=== PATIENT | male | born 1945 ===

== ENCOUNTER 2018-07-19 11:31 | Emergency (ER) | payer MEDICARE, OTHER ==
[2018-07-19 12:07] VITALS: TEMP 97.9
[2018-07-19 12:12] LABS: BASO # 0.06 K/mm3 (0.0-2.0); BASO % 0.8 % (0.0-3.0); EOS % 12.8 % (1.5-5.0); GRAN # 4.95 (1.4-6.5); GRAN % 62.4 % (50.0-68.0); HEMOGLOBIN 9.8 g/dL (14.0-18.0); LYMPH # 1.4 (1.2-3.4); LYMPH % 17.6 % (22.0-35.0); MEAN CELL VOLUME 95.5 fl (80.0-105.0); MEAN CORPUSCULAR HEMOGLOBIN 31.6 pg (25.0-35.0); MEAN CORPUSCULAR HGB CONC 33.1 g/dl (31.0-37.0); MEAN PLATELET VOLUME 9.8 fl (7.0-11.0); MONO # 0.5 (0.1-0.6); MONO % 6.4 % (1.0-6.0); RBC 3.1 10^6/uL (3.5-6.1); RED CELL DISTRIBUTION WIDTH 15.3 % (11.5-14.5); WHITE BLOOD COUNT 7.9 10^3/uL (4.5-11.0)
[2018-07-19 12:15] LABS: ALB/GLOB RATIO 0.6 (1.1-1.8); ALBUMIN 2.8 g/dL (3.0-4.8); ALT/SGPT 73 U/L (7-56); AST/SGOT 79 U/L (17-59); BLOOD UREA NITROGEN 18 mg/dL (7-21); CALCIUM 8.4 mg/dL (8.4-10.5); GFR NON-AFRICAN AMERICAN 43
--- NOTE | 2018-07-19 12:22 | ED PDOC ---
Arrival/HPI - General Chief Complaint: High Blood Sugar Time Seen by Provider: 07/19/18 11:36 Historian: Patient, Spouse - History of Present Illness Narrative History of Present Illness (Text): 07/19/18 12:18 A 72 year old male, whose past medical history includes DM, presents to the emergency department with for a complaint of weakness and dizziness this morning. The patient notes that his blood sugar was 170 last night and states that it fluctuates. His notes that his blood sugar was 340 when EMS checked it prior to arrival to the emergency department. The patient states that he was prescribed 50 units of NovoLog twice a day prior to eating. The patient has also been taking 20 mg of Lasix once a day for the past 3-4 days. The patient's notes that he was seen last week and 2 days ago at different medical institutions for similar symptoms and discharged home because results were normal. The patient denies fevers, chills, numbness/ tingling, headache, cough, sore throat, chest pain, shortness of breath, dyspena on exertion, abdominal pain, nausea, vomiting, diarrhea, neck/ back pain, urinary/ bowel symptoms, trauma/ injury, or any other complaints. PMD: None Time/Duration: Other (This Morning) Symptom Onset: Sudden Symptom Course: Unchanged Activities at Onset: Rest, Light Context: Home Past Medical History - Provider Review Nursing Documentation Reviewed: Yes - Endocrine/Metabolic Hx Diabetes Mellitus Type 1: Yes - Genitourinary/Gynecological Other/Comment: stomach ulcer - Psychiatric Hx Substance Use: No - Surgical History Other/Comment: bypass robatic sx x 17 years - Anesthesia Hx Anesthesia: Yes Hx Anesthesia Reactions: No Hx Malignant Hyperthermia: No Family/Social History - Physician Review Nursing Documentation Reviewed: Yes Family/Social History: No Known Family HX Smoking Status: Never Smoked Hx Alcohol Use: No Hx Substance Use: No Allergies/Home Meds Allergies/Adverse Reactions: Allergies erythromycin base Allergy (Verified 07/19/18 11:38) ANAPHYLAXIS Home Medications: Home Meds Medication Instructions Recorded Confirmed Albuterol Sulfate 2 inh PO Q6 07/19/18 07/19/18 Cetirizine HCl 10 mg PO DAILY 07/19/18 07/19/18 Furosemide 40 mg PO DAILY 07/19/18 07/19/18 Losartan 25 mg PO DAILY 07/19/18 07/19/18 Magnesium Oxide 400 mg PO DAILY 07/19/18 07/19/18 Metoprolol Succinate 50 mg PO DAILY 07/19/18 07/19/18 Nexium 40 mg PO DAILY 07/19/18 07/19/18 Review of Systems - Physician Review All systems were reviewed & negative as marked: Yes - Review of Systems Constitutional: absent: Fevers ENT: absent: Sore Throat Respiratory: absent: SOB, Cough Cardiovascular: absent: Chest Pain, FRIEDMAN Gastrointestinal: absent: Abdominal Pain, Stool Changes, Diarrhea, Nausea, Vomiting Genitourinary Male: absent: Urinary Output Changes Musculoskeletal: absent: Back Pain, Neck Pain Neurological: Dizziness, Other (Weakness). absent: Headache Physical Exam Vital Signs Reviewed: Yes Vital Signs Temp Pulse Resp BP Pulse Ox 07/19/18 12:06 97.9 F 73 18 143/79 98 Temperature: Afebrile Blood Pressure: Normal Pulse: Regular Respiratory Rate: Normal Appearance: Positive for: Well-Appearing, Non-Toxic, Comfortable Pain Distress: None Mental Status: Positive for: Alert and Oriented X 3 - Systems Exam Head: Present: Atraumatic, Normocephalic Pupils: Present: PERRL Extroacular Muscles: Present: EOMI Conjunctiva: Present: Normal Mouth: Present: Moist Mucous Membranes Neck: Present: Normal Range of Motion Respiratory/Chest: Present: Clear to Auscultation, Good Air Exchange. No: Respiratory Distress, Accessory Muscle Use Cardiovascular: Present: Regular Rate and Rhythm, Normal S1, S2. No: Murmurs Abdomen: No: Tenderness, Distention, Peritoneal Signs Back: Present: Normal Inspection Upper Extremity: Present: Normal Inspection. No: Cyanosis, Edema Lower Extremity: Present: Edema (+1 Edema) Neurological: Present: GCS=15, CN II-XII Intact, Speech Normal Skin: Present: Warm, Dry, Normal Color. No: Rashes Psychiatric: Present: Alert, Oriented x 3, Normal Insight, Normal Concentration Medical Decision Making ED Course and Treatment: 07/19/18 12:24 Impression: A 72 year old male is brought into the emergency department for further evaluation of weakness and dizziness this morning. Plan: -- EKG -- CXR -- Urine Culture -- Urinalysis -- Labs -- Reassess and disposition Progress Notes: EKG: Ordered, reviewed, and independently interpreted the EKG. Rate : 76 BPM Rhythm : NSR Interpretation : Normal axis. Normal intervals. Chest X- Ray Dictator : Kendrick Cabrera MD Report Date : 07/19/2018 13:23:47 IMPRESSION: No active disease. PROCEDURE: CT Abdomen and Pelvis without intravenous contrast Dictator : Kendrick Cabrera MD Report Date : 07/19/2018 14:34:56 IMPRESSION: Cirrhosis. Moderate ascites and mesenteric edema. Gallstones. ABDOMEN ULTRASOUND Dictator : Robert Correia MD Report Date : 07/19/2018 16:41:30 IMPRESSION: Cholelithiasis. No sonographic evidence of acute cholecystitis. Splenomegaly. PROCEDURE: CT HEAD WITHOUT CONTRAST. Dictator : Kendrick Cabrera MD Report Date : 07/19/2018 14:09:48 IMPRESSION: No acute intracranial findings - Lab Interpretations Lab Results: 07/19/18 12:00 07/19/18 12:00 Lab Results 07/19/18 12:00: Sodium 136, Potassium 3.7, Chloride 101, Carbon Dioxide 30, Anion Gap 8 L, BUN 18, Creatinine 1.6 H, Est GFR ( Amer) 52, Est GFR (Non-Af Amer) 43, Random Glucose 298 H, Calcium 8.4, Magnesium 1.5 L, Total Bilirubin 3.6 H, AST 79 H, ALT 73 H, Alkaline Phosphatase 98, Lactate Dehydrogenase 1179 H, Total Creatine Kinase 320 H, CK-MB (CK-2) Pending, CK-MB (CK-2) % Pending, Troponin I Pending, Total Protein 7.7, Albumin 2.8 L, Globulin 4.9, Albumin/Globulin Ratio 0.6 L, B-Hydroxybutyrate Pending 07/19/18 12:00: WBC 7.9, RBC 3.10 L, Hgb 9.8 L, Hct 29.6 L, MCV 95.5, MCH 31.6, MCHC 33.1, RDW 15.3 H, Plt Count 50 L, MPV 9.8, Gran % 62.4, Lymph % (Auto) 17.6 L, Mineral % (Auto) 6.4 H, Eos % (Auto) 12.8 H, Baso % (Auto) 0.8, Gran # 4.95, Lymph # (Auto) 1.4, Mineral # (Auto) 0.5, Eos # (Auto) 1.0 H, Baso # (Auto) 0.06 07/19/18 11:36: POC Glucose (mg/dL) 260 H I have reviewed the lab results: Yes - RAD Interpretation Radiology Orders: 07/19/18 11:45 CHEST PORTABLE [RAD] Stat - EKG Interpretation Interpreted by ED Physician: Yes Type: 12 lead EKG - Scribe Statement The provider has reviewed the documentation as recorded by the Scribe Nathalia Rodriguez Provider Scribe Attestation: All medical record entries made by the Scribe were at my direction and personally dictated by me. I have reviewed the chart and agree that the record accurately reflects my personal performance of the history, physical exam, medical decision making, and the department course for this patient. I have also personally directed, reviewed, and agree with the discharge instructions and disposition. Disposition/Present on Arrival - Present on Arrival Any Indicators Present on Arrival: No History of DVT/PE: No History of Uncontrolled Diabetes: No Urinary Catheter: No History of Decub. Ulcer: No History Surgical Site Infection Following: None - Disposition Have Diagnosis and Disposition been Completed?: Yes Diagnosis: Hyperglycemia due to type 1 diabetes mellitus Disposition: HOME/ ROUTINE Disposition Time: 15:00 Condition: IMPROVED Discharge Instructions (ExitCare): Hyperglycemia, Adult (DC), Diabetic Meal Planning , Diabetes and Diet Additional Instructions: TRISTAN CORONADO, thank you for letting us take care of you today. The emergency medical care you received today was directed at your acute symptoms. If you were prescribed any medication, please fill it and take as directed. It may take several days for your symptoms to resolve. Return to the Emergency Department if your symptoms worsen, do not improve, or if you have any other problems. Please contact your doctor or call one of the physicians/clinics you have been referred to that are listed on the Patient Visit Information form that is included in your discharge packet. Bring any paperwork you were given at discharge with you along with any medications you are taking to your follow up visit. Our treatment cannot replace ongoing medical care by a primary care provider outside of the emergency department. Thank you for allowing the [facility] team to be part of your care today. Eat a balanced diet. NO CAKE! Follow up with your primary doctor and Dr. Mortensen next week for re-evaluation and further management. Prescriptions: Famotidine [Pepcid] 20 mg PO BID #20 tab Meclizine [Meclizine*] 25 mg PO Q6 PRN #20 tab PRN Reason: Dizziness Referrals: Fabiola Mortensen MD [Medical Doctor] - Follow up with primary Forms: [employer] (Latvian)
[2018-07-19 12:26] LABS: TROPONIN I < 0.01 ng/mL
[2018-07-19 12:35] LABS: CK-MB 2.4 ng/mL (0.0-3.6)
[2018-07-19 13:06] LABS: VENOUS BLOOD GAS BASE EXCESS 7.5 mmol/L (0.0-2.0); VENOUS BLOOD GAS PO2 176 mm/Hg (30-55); VENOUS BLOOD PH 7.51 (7.32-7.43)
--- NOTE | 2018-07-19 13:28 | RAD ---
Date of service: 07/19/2018 HISTORY: r/o infiltrate COMPARISON: No prior. FINDINGS: LUNGS: No active pulmonary disease. PLEURA: No significant pleural effusion identified, no pneumothorax apparent. CARDIOVASCULAR: No aortic atherosclerotic calcification present. Mild cardiomegaly no pulmonary vascular congestion. OSSEOUS STRUCTURES: No significant abnormalities. VISUALIZED UPPER ABDOMEN: Normal. OTHER FINDINGS: None. IMPRESSION: No active disease.
[2018-07-19 14:10] LABS: PH,URINE 6.5 (4.7-8.0); URINE BILIRUBIN NEGATIVE (NEGATIVE); URINE BLOOD NEGATIVE (NEGATIVE); URINE GLUCOSE (UA) 500 mg/dL (NEGATIVE); URINE LEUKOCYTE ESTERASE NEGATIVE Leu/uL (NEGATIVE); URINE PROTEIN NEGATIVE mg/dL (<30 mg/dL); URINE UROBILINOGEN 0.2 E.U./dL (<1 E.U./dL)
[2018-07-19 14:11] LABS: URINE APPEARANCE CLEAR (CLEAR); URINE COLOR YELLOW (YELLOW)
--- NOTE | 2018-07-19 14:14 | CT ---
Date of service: 07/19/2018 PROCEDURE: CT HEAD WITHOUT CONTRAST. HISTORY: r/o ICH COMPARISON: None available. TECHNIQUE: Axial computed tomography images were obtained through the head/brain without intravenous contrast. Radiation dose: Total exam DLP = 937.91 mGy-cm. This CT exam was performed using one or more of the following dose reduction techniques: Automated exposure control, adjustment of the mA and/or kV according to patient size, and/or use of iterative reconstruction technique. FINDINGS: HEMORRHAGE: No intracranial hemorrhage. BRAIN: No mass effect or edema. No atrophy or chronic microvascular ischemic changes. VENTRICLES: Unremarkable. No hydrocephalus. CALVARIUM: Unremarkable. PARANASAL SINUSES: Unremarkable as visualized. No significant inflammatory changes. MASTOID AIR CELLS: Unremarkable as visualized. No inflammatory changes. OTHER FINDINGS: None. IMPRESSION: No acute intracranial findings
--- NOTE | 2018-07-19 14:38 | CT ---
Date of service: 07/19/2018 PROCEDURE: CT Abdomen and Pelvis without intravenous contrast HISTORY: upper abdominal pain COMPARISON: None. TECHNIQUE: Without contrast. Contrast dose: Radiation dose: Total exam DLP = 941.12 mGy-cm. This CT exam was performed using one or more of the following dose reduction techniques: Automated exposure control, adjustment of the mA and/or kV according to patient size, and/or use of iterative reconstruction technique. FINDINGS: LOWER THORAX: Unremarkable. LIVER: Severe atrophy of the liver consistent with cirrhosis. GALLBLADDER AND BILE DUCTS: Multiple gallstones PANCREAS: Unremarkable. No gross lesion or ductal dilatation. SPLEEN: Unremarkable. ADRENALS: Unremarkable. No mass. KIDNEYS AND URETERS: Unremarkable. No hydronephrosis. No solid mass. VASCULATURE: Unremarkable. No aortic aneurysm. No aortic atherosclerotic calcification or mural plaque present. BOWEL: Unremarkable. No obstruction. No gross mural thickening. APPENDIX: Unremarkable. Normal appendix. PERITONEUM: There is moderate ascites and mesenteric edema LYMPH NODES: Unremarkable. No enlarged lymph nodes. BLADDER: Unremarkable. REPRODUCTIVE: Unremarkable. BONES: No acute fracture. OTHER FINDINGS: None. IMPRESSION: Cirrhosis. Moderate ascites and mesenteric edema. Gallstones.
--- NOTE | 2018-07-19 16:44 | US ---
Date of service: 07/19/2018 HISTORY: gallstones seen on CT today COMPARISON: July 19, 2018 and pelvis TECHNIQUE: Sonographic evaluation of the abdomen. FINDINGS: LIVER: Measures 10.4 cm. Hepatopedal blood flow. Fatty infiltration manifest ultrasonographically as increased echogenicity of the liver parenchyma. No mass. No intrahepatic bile duct dilatation. Nodular contour to the liver consistent with hepatocellular disease possible cirrhosis. GALLBLADDER: Cholelithiasis. Negative study for gallbladder wall thickening, pericholecystic fluid, sonographic Greenberg's sign. COMMON BILE DUCT: Measures 5.1 mm. No stones. No dilatation. PANCREAS: Unremarkable as visualized. No mass. No ductal dilatation. RIGHT KIDNEY: Measures 5 x 10.2cm. Normal echogenicity. No calculus, mass, or hydronephrosis. LEFT KIDNEY: Measures 4.1 x 10.1cm. Normal echogenicity. No calculus, mass, or hydronephrosis. SPLEEN: Splenomegaly. Orthogonal measurements 6 x 13.2 cm AORTA: No aneurysmal dilatation. IVC: Obscured by overlying bowel gas. Non diagnostic assessment of inferior vena cava. OTHER FINDINGS: None. IMPRESSION: Cholelithiasis. No sonographic evidence of acute cholecystitis. Splenomegaly.
[2018-07-19 17:33] VITALS: BP 140/64; PULSE 78; RESP 15; O2SAT 97
--- NOTE | 2018-07-19 19:43 | CARD ---
APPROVED REPORT Date of service: 07/19/2018 EKG Measurement Heart [id number] OR [id number] <Conclusion> Normal sinus rhythm Normal ECG
== END 2018-07-19 18:05 | disposition home or self-care (01) ==
LOC: ED 11:31
DX: E10.65 Type 1 diabetes mellitus with hyperglycemia (principal)
CPT/HCPCS: 70450; 71045; 74176; 76700; 80053; 81003; 82009; 82550; 82553; 82803; 82948; 83615; 83735; 84484; 85025; 87086; 93005; 96374; 99285; J2405